=== PATIENT | male | born 1940 | race Caucasian/White ===

== ENCOUNTER 2017-06-15 20:04 | Observation (INO) | payer MEDICARE, OTHER ==
[2017-06-15 21:30] LABS: Troponin I Less than 0.010 ng/mL (< 0.028)
[2017-06-15] MEDS ORDERED: Pantoprazole 40 MG VIAL ONE (21:57)
[2017-06-15] MEDS ORDERED: Simethicone Chewable 80 MG TAB PO SCH (22:15)
[2017-06-16] MEDS ORDERED: Acetaminophen 325 MG TAB PO PRN (00:13)
[2017-06-16] MEDS ORDERED: Dextrose 50% Abboject 50 ML SYRINGE SLOW IVP PRN (00:13)
[2017-06-16] MEDS ORDERED: Ondansetron ODT 4 MG TAB PO PRN (00:13)
[2017-06-16] MEDS ORDERED: Sodium Chloride 0.9% 1,000 ML IV SCH (00:13)
[2017-06-16] MEDS ORDERED: HumaLOG 300 UNITS/3 ML VIAL SC PRN (00:13)
[2017-06-16] MEDS ORDERED: Benzonatate 100 MG CAP PO PRN (00:13)
[2017-06-16] MEDS ORDERED: Dextrose 5% in Water 1,000 ML IV PRN (00:13)
[2017-06-16] MEDS ORDERED: Nitroglycerin 0.4 MG TAB (25 Tab Bottle) SL PRN (00:13)
[2017-06-16 00:41] VITALS: BMI 29.8
[2017-06-16 00:42] LABS: Hemoglobin A1c 6.5 % (4.0-6.0)
[2017-06-16 01:14] LABS: Anion Gap 15 mmol/L (10-20); BUN (Urea Nitrogen) 23 mg/dL (8.4-25.7); Calc. Creatinine Clearance 85 mL/min (70-130); Calcium 9.4 mg/dL (7.8-10.44); Carbon Dioxide 25 mmol/L (23-31); Chloride 99 mmol/L (98-107); Cholesterol 151 mg/dl (< 200 Desired); Estimated GFR-MDRD 67; LDL Cholesterol, Calculated 86 mg/dL
[2017-06-16 04:25] LABS: #Eosinphils 0.2 thou/uL (0.0-0.7); #Monocytes 0.9 thou/uL (0.11-0.59); #Neutrophils 6.3 thou/uL (1.40-6.50); %Basophils 0.3 % (0.0-1.0); %Eosinophils 2.2 % (0.0-10.0); %Lymphocytes 20.8 % (21.0-51.0); %Monocytes 9.9 % (0.0-10.0); Hematocrit 34.2 % (42.0-52.0); Mean Platelet Volume 6.9 fL (7.4-10.4); Red Blood Cell (RBC) Count 3.82 mill/uL (4.70-6.10); White Blood Cell (WBC) Count 9.4 thou/uL (4.8-10.8)
[2017-06-16 05:39] LABS: Troponin I Less than 0.010 ng/mL (< 0.028)
--- NOTE | 2017-06-16 05:45 | HP-2 ---
DATE OF SERVICE: 06/15/2017 ADMISSION DATE: 06/15/2017 LOCATION: [facility] in [place], [place]. CODE STATUS: FULL. PRIMARY CARE PHYSICIAN: [facility] ATTENDING PHYSICIAN: Dr. Lesa Mccloud. RESIDENT PHYSICIAN: Dr. Dickey. HISTORIAN: History provided by the patient. SPECIALIST: Unknown. CHIEF COMPLAINT: Chest pain, neck pain. HISTORY OF PRESENT ILLNESS: Patient is a 76-year-old male with past medical history of hypertension, hyperlipidemia, type 2 diabetes, and asbestosis who presents for chest and neck pain. Patient state s the pain was present when he woke up this morning, but denied that chest pain started this morning. Patient reports the pain was not associated with any nausea, vomiting, diaphoresis, vision changes, or syncopal episodes. He reports it is sharp in nature and located on the right side of his chest a s well as the right side of his neck. He denied any radiation of the pain into his back. Denied any exacerbating or remitting symptoms, more specifically denied improvement in symptoms with rest in na ture. Patient did report increased belching throughout the day. Also, reported a brief period of sh ortness of breath prior to going to the ER. Of note, the patient reports that he decided [facility] only when he found his blood pressure to be 180/90 when he took his pressure at home and kayla fernandez had no concern with the chest pain. Additionally, the patient reported a slight headache after t he nitro was placed. ER COURSE: In the ER, the patient was given 100 mg Lovenox at 17:30 as well as 325 aspirin in additi on to nitro paste, Mylicon and Protonix. PAST MEDICAL HISTORY: 1. Hypertension. 2. Hyperlipidemia. 3. Type 2 diabetes. 4. Asbestosis. 5. Arthritis. PAST SURGICAL HISTORY: 1. Bilateral total knee replacement. 2. Bilateral cataract surgery. 3. "Back surgery" unknown type. ALLERGIES: No known drug allergies. MEDICATIONS: Unknown blood pressure medication, unknown hyperlipidemia medication, unknown arthritis medication. FAMILY HISTORY: Maternal history significant for valve replacement surgery, unknown type. Paternal history of colon and lung cancer. SOCIAL HISTORY: Patient is a prior smoker approximately [id number] history. Additionally, the pat ient reports he uses chewing tobacco and dips approximately 1 can every 2 weeks. Denies alcohol. 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 REVIEW OF SYSTEMS: The patient complains of chills. Denies fever, weight changes, appetite changes, fatigue, or night sweats. Eyes: Denies vision changes or eye pain. ENT: Denies nasal congestion, rhinorrhea, sore throat. Respiratory: Complains of cough. Denies chest congestion, shortness of b reath or exercise intolerance. Cardiovascular: Complains of chest pain. Denies palpitations, edema , or orthopnea. GI: Denies nausea, vomiting, diarrhea, constipation, abdominal pain. Skin: No theron hes or lesions. Musculoskeletal: Complains of right shoulder pain, right neck pain as well as shoul tequila stiffness and neck stiffness. Neurologic: Denies weakness, numbness, syncopal episodes. PHYSICAL EXAMINATION: VITAL SIGNS: Blood pressure 112/74, pulse 89, respiratory rate 20, T-max 97.8, pulse ox 95% on room air, current weight 95.25 kilograms. GENERAL: The patient is alert, oriented, no acute distress. Well-developed, well-nourished, appropr iately interactive. HEENT: Pupils are equal, round, reactive to light with accommodation. Extraocular muscles intact. Conjunctivae within normal limits. ENT: Oropharynx is within normal limits. NECK: Supple, without lymphadenopathy, no thyromegaly, no carotid bruits appreciated. CARDIOVASCULAR: Regular rate and rhythm. Distant heart sounds. No murmurs, rubs, or gallops. Radi al pulse 2+. Pedal pulse 2+. RESPIRATORY: Normal effort, no retractions. LUNGS: Clear to auscultation bilaterally. SKIN: Warm and dry. No cyanosis. No lesions. ABDOMEN: Soft, nontender. Normoactive bowel sounds in all 4 quadrants. No masses, distention, or o rganomegaly. EXTREMITIES: No clubbing, cyanosis. Mild lower extremity edema to the ankle, nonpitting. MUSCULOSKELETAL: Structure within normal limits. Tone within normal limit. Tender to palpation ove r the right trapezius and sternocleidomastoid muscle. NEUROLOGIC: No focal deficits. GCS 15. PSYCHIATRIC: Appropriate and interactive. LABORATORY DATA: White blood cell 14.2, hemoglobin 14.3, hematocrit 41.7, platelets 326. Sodium 138 , potassium 3.2, chloride 27, bicarb 17, BUN 24, creatinine 1.13, glucose 184, calcium 10, total prot ein 8, albumin 4.3, AST 15, ALT 23, alkaline phosphatase 67, total bilirubin 0.5. D-dimer 0.71. Flu A and B is negative. CK-MB originally is 2.5 and subsequently was 1.9, troponin I less than 0.010 x 2. Chest x-ray no acute cardiopulmonary process. IMAGING: CTA chest showed no evidence of pulmonary embolism; however, it was noted that the patient had fibrosis as well as evidence for asbestosis with calcification. Recommended pulmonology followup . ASSESSMENT AND PLAN: 1. Atypical chest pain versus gastroesophageal reflux disease. Patient will be admitted to [facility] and placed on the monitor overnight. We will get a morning stress test, a repeat stroke x3. Check magn esium, phosphorus, TSH, a repeat morning BMP. Patient was placed on IV p.o. Protonix and Mylicon as needed for gas given 325 aspirin daily and 40 mg Lovenox daily for deep venous thrombosis prophylaxi s. He was previously given a nitro paste as well as a therapeutic dose of Lovenox 100 mg. We will c ontinue Lovenox for deep venous thrombosis prophylaxis only and the nitro paste has been discontinued secondary to decreased blood pressure. We will continue p.r.n. nitro. Check BNP. 2. Hypertension. Continue home medications. Patient will need to be reconciled with home medicatio ns. If he is on beta maribell, we will hold until after the stress test is performed. 3. Hyperlipidemia. Continue statin. 4. Type 2 diabetes with mild sliding scale insulin. Hold metformin for now. 5. Hypokalemia. The patient was given 40 mEq of potassium in the outside ER. We will trend with a morning BMP. 6. Leukocytosis. Patient has a mild cough, but no evidence of acute infection. We will give 1 lite r bolus of normal saline. Recheck morning CBC with this possibly secondary to a viral URI versus med ication reaction as patient is on unknown medication for his arthritis history. 7. History of tobacco abuse, counseled on cessation. 8. Prophylaxis. Patient was given Protonix p.o. as well as Lovenox for gastrointestinal and deep ve nous thrombosis prophylaxis respectively.
[2017-06-16] MEDS ORDERED: FLU VACC TS2017-18 (>65YR) 0.5 ML SYRINGE IM ONE (09:00)
[2017-06-16] MEDS ORDERED: Enoxaparin Sodium 40 MG/0.4 ML SYRINGE SC SCH (09:00)
[2017-06-16] MEDS ORDERED: Aspirin 325 MG TAB PO SCH (09:00)
[2017-06-16 10:58] LABS: Iron 39 ug/dL (65-175)
--- NOTE | 2017-06-16 13:26 | ADD-PRG ---
ADDENDUM: 06/16/2017 To the note of Dr. Josefina Valverde. Mr. Montgomery is a pleasant 76-year-old white male patient with no prior history of coronary artery dise ase who was admitted with some atypical chest pain. Specifically at rest yesterday, he had an episod e of right-sided chest pain that radiated into the right side of his neck. It was associated with na usea and diaphoresis. He eventually presented to the emergency room and has been admitted to [facility] e his chest discomfort. So far, his EKG is normal. His troponins are negative. He is currently undergoing a stress Myoview. Depending on results, he will be discharged or we will consult Cardiology for catheterization.
--- NOTE | 2017-06-16 13:35 | NM ---
MYOCARDIAL PERFUSION SCAN WITH SPECT IMAGING: History: Chest pain. Examination is performed using 31.2 mCi Technetium 99M Sestamibi on the stress and 9 mCi on the resti ng images. FINDINGS: There is a normal distribution of the radiopharmaceutical without signs of ischemic or scar. Wall motion: There is symmetric contractility to the ventricle. Left Ventricular Ejection Fraction: The calculated left ventricular ejection fraction is 51%. IMPRESSION: No evidence of ischemia. Left ventricular ejection fraction is calculated at 51%. Please correlate echocardiogram. POS: LIZ
--- NOTE | 2017-06-16 14:55 | PDOC.FM ---
- Subjective Subjective: Patient is doing well, denies CP. Reports gas pain and continued neck pain that is reproducible and worse with turning his neck. - Objective MAR Reviewed: Yes Vital Signs & Weight: Vital Signs (12 hours) Temp Pulse Resp BP BP Pulse Ox 06/16/17 12:50 97.7 F 82 20 131/77 97 06/16/17 07:55 98.4 F 83 20 06/16/17 07:54 98.4 F 83 20 117/70 95 06/16/17 03:54 98.7 F 90 20 105/58 L 92 L Weight Admit Weight 99.836 kg Weight 99.836 kg I&O: 06/15/17 06/16/17 06/17/17 06:59 06:59 06:59 Intake Total 1240 250 Balance 1240 250 Result Diagrams: 06/16/17 03:52 06/15/17 20:51 Phys Exam - Physical Examination Constitutional: NAD HEENT: moist MMs ttp on the R neck Respiratory: no wheezing, clear to auscultation bilateral Cardiovascular: RRR, no significant murmur ttp on R chest Gastrointestinal: soft, non-tender, no distention, positive bowel sounds Musculoskeletal: pulses present Neurological: moves all 4 limbs Psychiatric: A&O x 3 Skin: no rash Dx/Plan (1) Atypical chest pain Code(s): R07.89 - OTHER CHEST PAIN Status: Acute (2) HTN (hypertension) Code(s): I10 - ESSENTIAL (PRIMARY) HYPERTENSION Status: Acute (3) Hx of smoking Code(s): Z87.891 - PERSONAL HISTORY OF NICOTINE DEPENDENCE Status: Acute (4) Asbestosis Code(s): J61 - PNEUMOCONIOSIS DUE TO ASBESTOS AND OTHER MINERAL FIBERS Status : Acute (5) Normocytic anemia Code(s): D64.9 - ANEMIA, UNSPECIFIED Status: Acute (6) Hyperlipidemia Code(s): E78.5 - HYPERLIPIDEMIA, UNSPECIFIED Status: Acute - Plan Plan: Atypical Chest Pain Likely GERD vs musculoskeletal in nature Resolved per patient, but with hx and risk factors will do stress test today. CXR wnl Troponins negative x3 EKG NSR Will d/c home if stress is negative. HTN Hold home meds while NPO for stress. Will restart after. HLD Hold home PO meds until after stress. Normocytic Anemia FOBT pending Fe studies pending Hx of Smoking Increases risk for CAD. Smoking cessation about 4 years ago. Asbestosis Seen on CXR. Being managed at [facility]. Stable
[2017-06-16 15:26] VITALS: BP 145/79; TEMP 97.6
[2017-06-16] MEDS ORDERED: ADENOSINE 60 MG/20 ML VIAL ONE (15:54)
[2017-06-16] MEDS ORDERED: Potassium Chloride 20 MEQ TAB PO SCH (17:00)
[2017-06-16] MEDS ORDERED: metFORMIN XR 500 MG TAB PO SCH (17:00)
[2017-06-16] MEDS ORDERED: Atorvastatin Calcium 20 MG TAB PO SCH (21:00)
[2017-06-16] MEDS ORDERED: Hydrochlorothiazide 25 MG TAB PO SCH (21:00)
[2017-06-16] MEDS ORDERED: Baclofen 10 MG TAB PO SCH (21:00)
[2017-06-16] MEDS ORDERED: Ascorbic Acid 500 mg Chewable Tablet PO SCH (21:00)
[2017-06-16] MEDS ORDERED: Amlodipine 5 MG TAB PO SCH (21:00)
[2017-06-16] MEDS ORDERED: Lisinopril 20 MG TAB PO SCH (21:00)
[2017-06-17] MEDS ORDERED: Fish Oil 1,000 MG CAP PO SCH (09:00)
[2017-06-17] MEDS ORDERED: Finasteride 5 MG TAB PO SCH (09:00)
--- NOTE | 2017-06-17 13:49 | DIS-2 ---
DATE OF ADMISSION: 06/15/2017 DATE OF DISCHARGE: 06/16/2017 ADMITTING ATTENDING: Lesa Mccloud M.D. DISCHARGE ATTENDING: Louis Morris MD RESIDENT: Josefina Valverde DO CONSULTATIONS: None. PROCEDURES/IMAGING: Nuclear medicine stress test was performed, which showed no evidence of ischemia. Left ventricular ejection fraction calculated 51%. PRIMARY DIAGNOSES: 1. Gastroesophageal reflux disease. 2. Atypical chest pain. SECONDARY DIAGNOSES: 1. Hypertension 2. history of tobacco abuse 3. hyperlipidemia. DISCHARGE MEDICATIONS: 1. Omeprazole 20 mg p.o. daily. 2. Aspirin 81 mg p.o. daily. 3. [place] 3 fatty acid/fish oil 1 cap p.o. daily. 4. Diclofenac 75 mg p.o. t.i.d. p.r.n. 5. Lisinopril 40 mg p.o. b.i.d. 6. Hydrochlorothiazide 25 mg p.o. b.i.d. 7. Baclofen 20 mg p.o. t.i.d. 8. Vitamin C 500 mg p.o. daily. 9. Amlodipine 5 mg p.o. b.i.d. 10. Potassium chloride 20 mEq p.o. daily. 11. Finasteride 5 mg p.o. daily. 12. Metformin XR 500 mg p.o. t.i.d. 13. Simvastatin 40 mg p.o. at bedtime. 14. Ferrous sulfate 325 mg p.o. daily. 15. Colace 100 mg p.o. daily. DISCONTINUED MEDICATIONS: Recommended discontinuation or decreased use of NSAIDs. HISTORY OF PRESENT ILLNESS AND HOSPITAL COURSE: The patient is a 76-year-old male with past medical history of hypertension, hyperlipidemia, type 2 diabetes , and asbestosis, who presented for chest and neck pain. Chest pain was atypical in nature and the patient also endorsed gas and belching throughout the day. He believes episode likely due to meal from convenience store. Although the pain was atypical in nature, the patient's risk factors were enough to want to observe overnight and get a stress test. Stress test was performed and revealed no acute ischemia. The patient's vital signs along with labs were normal with the exception of mild anemia. Patient is asymptomatic. Iron studies were performed revealed likely anemia due to iron deficiency. Recommend FOBT and decreased use of NSAIDs including current diclofenac medication for osteoarthritis. Follow up with primary care doctor. The patient may need upper endoscopy to evaluate for upper GI ulcerations. DISPOSITION: Stable. DISCHARGE INSTRUCTIONS: 1. Location: Home. 2. Diet: Heart healthy with low sodium. 3. Activity: As tolerated. 4. Followup: Follow up with PCP Mari for further workup in 1-2 weeks. DIGNA
--- NOTE | 2017-07-20 11:50 | EKG ---
Test Reason : CHEST PAIN Blood Pressure : / mmHG Vent. Rate : 085 BPM Atrial Rate : 085 BPM P-R Int : 168 ms QRS Dur : 098 ms QT Int : 364 ms P-R-T Axes : 048 042 048 degrees QTc Int : 433 ms Normal sinus rhythm Early repolarization Normal ECG Confirmed by JOO CAGE, CHARLEY ([id number]), commercial production editor ROSI PACHECO ([id number]) on 07/20/2017 11:49:40 AM Referred By: Confirmed By:CHARLEY GE MD
== END 2017-06-16 18:06 | disposition home or self-care (01) ==
LOC: ERS 20:04 → 2SW 22:18
PROVIDERS: ADMIT Student in an Organized Health Care Education/Training Program; ATTEND Student in an Organized Health Care Education/Training Program
DX: R07.89 Other chest pain (principal); I10 Essential (primary) hypertension; J61 Pneumoconiosis due to asbestos and other mineral fibers; D64.9 Anemia, unspecified; E78.5 Hyperlipidemia, unspecified; E11.9 Type 2 diabetes mellitus without complications; F17.220 Nicotine dependence, chewing tobacco, uncomplicated; F17.210 Nicotine dependence, cigarettes, uncomplicated; M19.90 Unspecified osteoarthritis, unspecified site; Z79.82 Long term (current) use of aspirin; Z79.84 Long term (current) use of oral hypoglycemic drugs; Z79.899 Other long term (current) drug therapy; Z96.653 Presence of artificial knee joint, bilateral; Z98.42 Cataract extraction status, left eye; Z98.41 Cataract extraction status, right eye; Z98.890 Other specified postprocedural states
CPT/HCPCS: 78452; 80048; 80061; 82553 ×2; 82728; 82962; 83036; 83540; 83550; 83735; 83880; 84100; 84443; 84484 ×2; 85025; 93005; 93017; 96374; 99285; A9500; G0378; 36415; 36416; 93010; C9113; J0153